=== PATIENT | male | born 1950 | race Caucasian/White ===

== ENCOUNTER 2019-04-25 16:17 | Outpatient (CLI) | payer OTHER, MEDICARE, SELFPAY ==
--- NOTE | 2019-04-25 16:30 | USCV_ITS ---
Yobany Simmons Age: 68 Gender: M : 1950 Exam Date: 04/25/2019 16:33 Ordering Phys: Mary Casillas MD ([email or web address]) Technologist: Marti Kendrick [place] [facility] [place]: HISTORY: PROCEDURES: FINDINGS: The Rt and Lt GSVs dwindle to nothing. The area of the GSV on RT pools into a Varicose Vein but can not trace origin. There is reflux in Rt GSV below knee but all the refluxing seems to come from the Rt SSV. The Lt GSV branches into several small vessels at mid thigh. No reflux noted. Sethi's cyst noted Lt Pop fossa. CONCLUSIONS 1.No evidence of DVT in the above-mentioned identifiable veins. 2. No significant reflux in the deep veins 3. On the right side, significant venous reflux of greater than 500 ms were noted at the below-knee greater saphenous vein segment, proximal and mid small saphenous vein segments. The distal greater saphenous vein segment is replaced by small tributaries, which empty into the mid greater saphenous vein. 4. On the left side, no significant reflux were noted in the superficial veins. The greater saphenous vein is identified only at the proximal segment. Multiple small tributaries appear to empty into the proximal greater saphenous vein segment. 5. The venous dimensions, depth from the surface and reflux times are as mentioned above. 6. The below-knee greater saphenous vein on the right side was 0.54 cm deep from the surface. The small saphenous vein segments on the right side were more than [address] Mary Casillas MD FAC (Electronically Signed) Final Date: 28 April 2019 14:10 S
== END 2019-04-25 16:18 | disposition home or self-care (01) ==
LOC: US 16:20
PROVIDERS: Family Provider Internal Medicine; PCP Internal Medicine; Visit Provider Internal Medicine Cardiovascular Disease
DX: M79.89 Other specified soft tissue disorders (principal); M71.22 Synovial cyst of popliteal space [Baker], left knee
CPT/HCPCS: 93970

== ENCOUNTER → 2019-09-24 16:15 | Outpatient (BNVA) | payer OTHER, MEDICARE, SELFPAY | PROVIDERS: Family Provider Internal Medicine; PCP Internal Medicine; Visit Provider Urology | DX: E29.1 Testicular hypofunction; K40.90 Unilateral inguinal hernia, without obstruction or gangrene, not specified as recurrent; N20.1 Calculus of ureter; N40.1 Benign prostatic hyperplasia with lower urinary tract symptoms; R79.89 Other specified abnormal findings of blood chemistry | CPT/HCPCS: 81001 ==

== ENCOUNTER 2019-10-14 03:04 | Emergency (ER) | payer OTHER, MEDICARE, SELFPAY ==
[2019-10-14 03:27] VITALS: BP 152/86; PULSE 58; RESP 16; TEMP 36.9; O2SAT 97; BMI 22.9
--- NOTE | 2019-10-14 03:29 | ED_ITS ---
HPI - Abdominal Pain General: Chief Complaint: Abdominal Pain Stated Complaint: lwr abd pain/ fell out shower Time Seen by Provider: 10/14/19 03:25 Source: patient Mode of arrival: ambulatory Limitations: no limitations History of Present Illness: HPI narrative: 69-year-old male states he started having sudden abdominal pain at 1130. States pain is in her right lower quadrant and goes to his groin along with his back. He states pain is sharp in nature. He states he has had difficulty urinating. He has no history kidney stone. He has had nausea with no vomiting. He denies any fever. Pertinent past history: none Onset (ago): hour(s) Pain Consistency: constant Location: RLQ and LLQ Severity: severe Quality: sharp Radiation: R flank Exacerbating factors: nothing Relieving factors: nothing Associated Symptoms: Reports nausea; Denies chills, dysuria and fever(s) Review of Systems Const: Denies: fever(s), chills, body aches or change in appetite Eyes: Denies: blurry vision or eye discomfort ENMT: Denies: throat pain or dental pain Card: Denies: chest pain Resp: Denies: dyspnea GI: Reports: abdominal pain and nausea : Denies: dysuria Musc: Denies: neck pain or back pain Skin/Breast: Denies: rash Neuro: Denies: headache(s) Psych: Denies: depression Lopez/Lymph: Denies: easy bruising All/Imm: Denies: urticaria PFSH ED PFSH: Medical History BPH loc w urin obs/LUTS Erectile dysfunction H/O coronary angiogram Hyperlipidemia Hypertension Hypogonadism in male Mitral regurgitation Ventricular arrhythmia Surgical History History of carpal tunnel surgery of right wrist Family History Other CAD (coronary artery disease) Cancer Dementia Diabetes Social History Smoking and tobacco status: former smoker Alcohol intake: never Adopted: No Caregiver/support person: No Lives independently: No Household members: spouse Marital status: Current occupational status: employed Physical Exam Const: COMMON NORMALS: no acute distress, patient oriented x3 and healthy appearing HENMT: COMMON NORMALS: normocephalic and atraumatic HEAD & SCALP: normocephalic and atraumatic Eye: COMMON NORMALS: Equal, round and reactive pupils present and EOMs intact bilaterally PUPIL: Yes Equal, round and reactive pupils present Neck/C-Spine: COMMON NORMALS: full ROM and supple Chest: COMMONS NORMALS: normal inspection of the chest and normal palpation of entire chest wall Resp: COMMON NORMALS: normal respiratory effort, No retractions, No use of accessory muscles and clear to auscultation bilaterally AUSCULTATION: clear to auscultation bilaterally Cardio: COMMON NORMALS: regular rate, regular rhythm and No murmurs present (Cardio) RATE: regular rate RHYTHM: regular rhythm GI: COMMON NORMALS: Normal to inspection, nondistended, normoactive bowel sounds present, Soft to palpation, non-tender and no masses PALPATION: Yes Soft to palpation Extremity: COMMON NORMALS: normal to inspection and full ROM Neuro: COMMON NORMALS: patient oriented x3, moves all extremities and no focal motor deficits Psych: COMMON NORMALS: mental status grossly normal, Normal thought process present and cooperative THOUGHT PROCESS: Normal thought process present Skin: COMMON NORMALS: no rashes or lesions noted and no wounds GENERAL SKIN EXAM: no rashes or lesions noted Course Vital Signs: Vital signs: Vital Signs Temperature 98.5 F 10/14/19 03:27 Pulse Rate 55 L 10/14/19 04:05 Respiratory Rate 15 10/14/19 04:05 Blood Pressure 137/78 10/14/19 04:05 Pulse Oximetry 94 10/14/19 04:05 MDM - Abdominal Pain MDM Narrative: Medical decision making narrative: Yobany presents here with a kidney stone. Kidney stone is small and his pain is much improved. We will place him on pain meds. He is to follow-up with Dr. Melara and return if worsening. Lab Data: Labs: Lab Results 10/14/19 10/14/19 10/14/19 Range/Units 03:39 03:39 04:45 WBC 9.7 (4.0-10.0) 10^3/ uL RBC 4.91 (4.1-5.3) 10^6/u L Hgb 15.1 (11.7-16.6) g/dL Hct 45.2 (42.0-52.0) % MCV 92.1 (80-94) fL MCH 30.8 (28.0-34.0) pg MCHC 33.4 (30.0-36.0) g/dL RDW 12.4 (12.1-15.1) % Plt Count 201 (130-400) 10^3/c mm MPV 9.6 (7.4-10.4) fL Neut % (Auto) 78.2 % Lymph % (Auto) 16.1 % [place] % (Auto) 4.1 % Eos % (Auto) 1.3 % Baso % (Auto) 0.1 % Neut # (Auto) 7.58 (1.8-7.7) 10^3/u L Lymph # (Auto) 1.6 (0.8-4.8) 10^3/u L [place] # (Auto) 0.4 (0.2-0.9) 10^3/u L Eos # (Auto) 0.1 (0.0-0.8) 10^3/u L Baso # (Auto) 0.0 (0.0-0.1) 10^3/u L Nucleated RBC % (a uto) 0 % Nucleated RBCs # 0.0 /100WBC Sodium 140 (136-145) mmol/L Potassium 4.0 (3.5-5.1) mmol/L Chloride 105 (98-107) mmol/L Carbon Dioxide 26 (22-29) mmol/L Anion Gap 13.0 (5-19) BUN 21 (8-23) mg/dL Creatinine 1.2 (0.7-1.2) mg/dL GFR Calculation 60.4 L (90-130) mL/min Glucose 168 H (65-115) mg/dL Calculated Osmolal ity 290 (285-295) mOsm/k g Calcium 8.9 (8.5-10.5) mg/dL Total Bilirubin 0.8 (0.15-1.2) mg/dL AST 24 (0-40) U/L ALT 23 (0-41) U/L Alkaline Phosphata se 60 (40-130) IU/L Total Protein 6.5 L (6.6-8.7) g/dL Albumin 4.3 (3.5-5.2) g/dL Globulin 2.2 (1.3-4.6) g/dL Lipase 48 (13-60) U/L Urine Color Yellow (Yellow) Urine Appearance Cloudy (CLEAR) Urine pH 5 (5-7) Ur Specific Gravit y 1.030 (1.005-1.030) Urine Protein Neg (Negative) Urine Glucose (UA) Norm (Normal) Urine Ketones 1+ H (Negative) Urine Blood Trace H (Negative) Urine Nitrate Negative (Negative) Urine Bilirubin Neg (NEGATIVE) Urine Urobilinogen Norm (Negative) mg/dL Ur Leukocyte Brandy ase Negative (Negative) Urine RBC Rare (0-2) /hpf Urine WBC Rare (0-5) /hpf Ur Squamous Epith Cells Rare (0-5) Amorphous Sediment Not Reportable Urine Bacteria 1+ H (NONE) Imaging Data ^: CT Abd/Pel: Radiologist's impression: [place] [address] CT Scan Report Signed Patient: Yobany Simmons Unit #: [id number] : 1950 Age/Sex: 69 / M ADM Date: 10/14/19 Loc: ER Room/Bed: Attending Dr: Ordering Provider/Ordering MD: Korey Pittman MD Date of Service: 10/14/19 Procedure(s): CT kidney stone 55244 Accession Number(s): [id number] Report Number: [id number] PROCEDURE INFORMATION: Exam: CT Abdomen And Pelvis Without Contrast Exam date and time: 10/14/2019 3:45 AM Age: 69 years old Clinical indication: Abdominal pain; Flank; Right; Additional info: Abd pain TECHNIQUE: Imaging protocol: Computed tomography of the abdomen and pelvis without contrast. Radiation optimization: All CT scans at this facility use at least one of these dose optimization techniques: automated exposure control; mA and/or kV adjustment per patient size (includes targeted exams where dose is matched to clinical indication); or iterative reconstruction. COMPARISON: CT abdomen pelvis w con* [id number] 07/23/2018 3:28 PM RADIATION DOSE METRICS: Total DLP (mGy-cm): 895.74 FINDINGS: Liver: Normal. No mass. Gallbladder and bile ducts: Normal. No calcified stones. No ductal dilation. Pancreas: Normal. No ductal dilation. Spleen: Tiny calcifications are present. No splenomegaly. Adrenals: Normal. No mass. Kidneys and ureters: A punctate stone is seen in the right lower ureter with mild hydroureteronephrosis and perinephric stranding. Stomach and bowel: Unremarkable. No obstruction. Diverticulosis of the left colon is present without diverticulitis. Appendix: No evidence of appendicitis. Unremarkable appendix. Intraperitoneal space: Unremarkable. No free air. No significant fluid collection. Vasculature: Unremarkable. No abdominal aortic aneurysm. Lymph nodes: Unremarkable. No enlarged lymph nodes. Bladder: Unremarkable as visualized. Reproductive: The prostate is prominent with calcifications. Bones/joints: Multilevel degenerative changes are present. No acute fracture. Soft tissues: Unremarkable. CT/CT kidney stone [id number] IMPRESSION: 1. A punctate stone is seen in the right lower ureter with mild hydroureteronephrosis and perinephric stranding. 2. Diverticulosis of the left colon is present without diverticulitis. 3. Multilevel degenerative changes seen in the lumbar spine. 4. Mildly enlarged prostate is seen with calcifications. Discharge Plan Discharge Patient Disposition: Home Clinical Impression: Kidney stone Condition: Stable Prescriptions: [place] 5-325 mg tablet 1 tab PO Q6H PRN (Reason: pain) Qty: 14 RF: 0 ondansetron 4 mg tablet,disintegrating 4 mg PO Q6H PRN (Reason: nausea and vomiting) Qty: 14 RF: 0 Flomax 0.4 mg capsule 0.4 mg PO DAILY Qty: 5 RF: 0 No Action tamsulosin 0.4 mg capsule 0.4 mg PO QDAY Qty: 30 RF: 12 bupropion HCl [Wellbutrin XL] 150 mg tablet extended release 24 hr 150 mg PO QAM RF: 0 metoprolol succinate [Toprol XL] 50 mg tablet extended release 24 hr 50 mg PO DAILY RF: 0 testosterone 12.5 mg/ 1.25 gram (1 %) gel in metered-dose pump 4 pump TRANSDERMA DAILY RF: 0 sildenafil 25 mg tablet 25 mg PO DAILY PRNRF: 0 hydrocortisone 2.5 % cream with applicator topical PRNRF: 0 montelukast [Singulair] 10 mg tablet 10 mg PO DAILY RF: 0 omega-3 fatty acids [Fish Oil Concentrate] 1,000 mg capsule 1,000 mg PO DAILY RF: 0 multivitamin Tablet 1 tab PO DAILY RF: 0 Discharge Orders: Discharge Order (Routine); Ordered 10/14/19 Ordered By: Korey Pittman Referrals: John Melara MD [Physician] - 1-3 days Clemente Muñiz DO [Primary Care Provider] - Discharge Diet: Advance as tolerated Discharge Activity: Resume usual activity Patient Instructions: Kidney Stones (ED) Coding Level of Care Code ED Roller [place] for Chg Fwd Exam Comprehensive
[2019-10-14 03:49] LABS: Basophils % 0.1 %; Eosinophils # 0.1 10^3/uL (0.0-0.8); Eosinophils % 1.3 %; Hematocrit 45.2 % (42.0-52.0); Hemoglobin 15.1 g/dL (11.7-16.6); Lymphocytes # 1.6 10^3/uL (0.8-4.8); Lymphocytes % 16.1 %; Mean Corpuscular HGB Conc 33.4 g/dL (30.0-36.0); Mean Corpuscular Hemoglobin 30.8 pg (28.0-34.0); Mean Corpuscular Volume 92.1 fL (80-94); Mean Platelet Volume 9.6 fL (7.4-10.4); Monocytes # 0.4 10^3/uL (0.2-0.9); Monocytes % 4.1 %; Neutrophils # 7.58 10^3/uL (1.8-7.7); Neutrophils % 78.2 %; Nucleated Red Blood Cells % 0 %; Platelet Count 201 10^3/cmm (130-400); Red Blood Count 4.91 10^6/uL (4.1-5.3); Red Cell Distribution Width 12.4 % (12.1-15.1); White Blood Count 9.7 10^3/uL (4.0-10.0)
[2019-10-14] MEDS: HYDROmorphone 1 mg/mL INJ 1 mL IVP (03:53)
[2019-10-14] MEDS: sodium chloride 0.9% 1,000 ML 999 ML IV (03:54)
[2019-10-14] MEDS: ondansetron 2 mg/ML SDV 2 mL 4 MG IVP (03:54)
[2019-10-14 04:05] VITALS: BP 137/78; PULSE 55; RESP 15; O2SAT 94
[2019-10-14 04:07] LABS: Alanine Aminotransferase 23 U/L (0-41); Albumin Level 4.3 g/dL (3.5-5.2); Alkaline Phosphatase 60 IU/L (40-130); Aspartate Amino Transferase 24 U/L (0-40); Blood Urea Nitrogen 21 mg/dL (8-23); Calcium 8.9 mg/dL (8.5-10.5); Carbon Dioxide 26 mmol/L (22-29); Chloride 105 mmol/L (98-107); Globulin 2.2 g/dL (1.3-4.6); Glomerular Filtration Rate 60.4 mL/min (90-130); Glucose 168 mg/dL (65-115); Lipase 48 U/L (13-60); Osmolality Calculated 290 mOsm/kg (285-295); Sodium 140 mmol/L (136-145); Total Bilirubin 0.8 mg/dL (0.15-1.2); Total Protein 6.5 g/dL (6.6-8.7)
[2019-10-14] MEDS: ketorolac 30 mg/mL INJ 15 MG IVP (04:49)
[2019-10-14 05:27] LABS: Add Urine Microscopic? YES; Bilirubin Urine Neg (NEGATIVE); Blood Urine Trace (Negative); Glucose Urine UA Norm (Normal); Ketones Urine 1+ (Negative); Leukocyte Esterase Urine Negative (Negative); Nitrate Urine Negative (Negative); Protein Urine Neg (Negative); RBC Urine RARE /hpf (0-2); Urine Appearance Cloudy (CLEAR); Urine Color Yellow (Yellow); Urobilinogen Urine Norm (Negative); WBC Urine RARE /hpf (0-5); pH Urine 5 (5-7)
[2019-10-14 05:28] LABS: Bacteria Urine 1+; Squamous Epithelial Cell Urine RARE (0-5)
[2019-10-14 05:44] VITALS: BP 120/75; PULSE 78; RESP 16; O2SAT 96
--- NOTE | 2019-10-14 09:44 | DCPLANNER ---
volunteer manager had message to schedule a follow up appointment for patient with Dr. Melara. volunteer manager called the office of Dr. Melara, spoke with Kiki, gave clinic patients information. volunteer manager was told that patients information would be printed and reviewed. Clinic will call patient with appointment information.
--- NOTE | 2019-10-17 15:50 | DCPLANNER ---
Patient has a follow up appointment scheduled for Monday, October 21, 2019 at 4:[address] Melara. Clinic will call patient with appointment information.
--- NOTE | 2019-11-13 08:23 | DCPLANNER ---
Patient had a follow up appointment scheduled with Dr. Dong office - patient did attend the appointment.
== END 2019-10-14 05:45 | disposition home or self-care (01) ==
PROVIDERS: Emergency Provider Emergency Medicine; PCP Internal Medicine
DX: N20.0 Calculus of kidney (principal); E78.5 Hyperlipidemia, unspecified; I10 Essential (primary) hypertension; Z87.891 Personal history of nicotine dependence
CPT/HCPCS: 12345; 74176; 80053; 81001; 83690; 85025; 96361; 96374; 96375; 99283; J1170; J1885; J2405; J7030

== ENCOUNTER 2019-10-14 13:24 | Outpatient (CLI) | payer OTHER, MEDICARE, SELFPAY ==
--- NOTE | 2019-10-14 13:00 | XRR_ITS ---
PROCEDURE INFORMATION: Exam: XR Abdomen, 1 View Exam date and time: 10/14/2019 1:40 PM Age: 69 years old Clinical indication: Condition or disease; Kidney or ureter condition; Calculus (stone) in kidney TECHNIQUE: Imaging protocol: XR of the abdomen. Views: Frontal supine view of the abdomen. 1 View. COMPARISON: CT kidney stone [id number] 10/14/2019 4:11 AM FINDINGS: Gastrointestinal tract: Normal. No bowel dilation. Bones/joints: No acute findings. XR/XR KUB [id number] IMPRESSION: No acute findings.
== END 2019-10-14 13:25 | disposition home or self-care (01) ==
LOC: RAD 13:28
PROVIDERS: PCP Internal Medicine; Visit Provider Urology
DX: N20.0 Calculus of kidney (principal)
CPT/HCPCS: 74018

== ENCOUNTER → 2019-10-15 10:44 | Outpatient (BNVA) | payer OTHER, MEDICARE, SELFPAY | PROVIDERS: PCP Internal Medicine; Visit Provider Urology | DX: N20.1 Calculus of ureter (principal) | CPT/HCPCS: 82365 ==

== ENCOUNTER → 2019-11-12 13:28 | Outpatient (BNVA) | payer OTHER, MEDICARE, SELFPAY | PROVIDERS: PCP Internal Medicine; Visit Provider Internal Medicine | DX: Z20.828 Contact with and (suspected) exposure to other viral communicable diseases (principal) | CPT/HCPCS: 87635 ==

== ENCOUNTER → 2020-07-07 15:24 | Outpatient (BNVA) | payer OTHER, MEDICARE, SELFPAY | PROVIDERS: PCP Internal Medicine; Visit Provider Internal Medicine | DX: Z01.812 Encounter for preprocedural laboratory examination (principal); Z86.010 Personal history of colon polyps; Z20.822 Contact with and (suspected) exposure to COVID-19 | CPT/HCPCS: 87635 ==

== ENCOUNTER 2020-07-13 08:47 | Day surgery (SDC) | payer OTHER, MEDICARE, SELFPAY ==
[2020-07-13 09:18] VITALS: BP 141/88; PULSE 63; RESP 16; TEMP 36.7; O2SAT 97
[2020-07-13] MEDS: sodium chloride 0.9% 1,000 ML 30 ML IV (09:32)
--- NOTE | 2020-07-13 09:49 | ANES.PREANE2 ---
Pre-Anesthetic Assessment Pre-Anesthetic Assessment: Height/Weight: Height 1.78 m Weight 72.575 kg Temp Pulse Resp BP Pulse Ox 98.1 F 63 16 141/88 97 07/13/20 09:18 07/13/20 09:18 07/13/20 09:18 07/13/20 09:18 07/13/20 09:18 Proposed Procedure: Operation Date: 07/13/20 10:00 Proposed Procedures p Colonoscopy G0105 Z86.010(Not Applicable) - Wiliam Joshi MD Was Beta Tia taken within 24 hours: Yes Last intake: Intake Last Liquid Date 07/12/20 Last Liquid Time 23:30 Last Solid Date 07/11/20 Last Solid Time 19:00 Social: Social History: No alcohol and No tobacco Exam: Pre-Anes Outpt Exam: alert, oriented x 3, clear to auscultation bilaterally and regular rate & rhythm Airway: Submandibular: WNL Cervical ROM: WNL MP: 2 Dentition: False Additional comments: Upper denture History/ROS: No significant history except as noted and No significant complaints Pulmonary: Pulmonary: None reported CV/HEM: CV/HEM: Afib, HTN and Murmur : : None reported Hepatic: Hepatic: None reported GI: GI: None reported Metabolic: Metabolic: None reported Musc/skel: Musc/skel: None reported Neuropsych: Neuropsych: None reported Anesthetic Plan: ASA status: 2 Anesthesia: MAC Risk of > 500 ml blood loss (7ml/kg in children): No Meds/Allergies Current Medications: Current Medications Generic Name Dose Route Start Last Admin Trade Name Freq PRN Reason Stop Dose Admin Sodium Chloride 1,000 mls @ 30 ml s/hr 07/13/20 09:15 07/13/20 09:32 Sodium Chloride 0.9% IV 07/14/20 09:14 30 mls/hr .Q24H HARRIET Administration PFSH Anesthesia PFSH: Medical History (Updated 06/29/20 @ 15:15 by Wiliam Joshi MD) BPH loc w urin obs/LUTS Erectile dysfunction H/O coronary angiogram Hyperlipidemia Hypertension Hypogonadism in male Mitral regurgitation Right ureteral calculus Ventricular arrhythmia Surgical History History of carpal tunnel surgery of right wrist Family History Family/Other Anesthesia complication Cancer Dementia Diabetes Father CAD (coronary artery disease) Dementia Stroke Mother CAD (coronary artery disease) Cancer Diabetes Sister Cancer Lung disease Denies family history of Clotting disorder Chronic kidney disease (CKD) Suicide Bleeding disorder Social History Smoking and tobacco status: former smoker Alcohol intake: never Adopted: No Caregiver/support person: No Lives independently: No Household members: spouse Marital status: Current occupational status: employed Data Anesthesia Cardiac Studies: No Data to Display
[2020-07-13 10:31] VITALS: BP 95/72; PULSE 81; RESP 18; TEMP 36.6; O2SAT 96
[2020-07-13 11:03] VITALS: BP 108/73; PULSE 61; RESP 18; O2SAT 98
--- NOTE | 2020-07-13 13:18 | W.PM.OPSFHP ---
Same Day Surgery H&P Indication for Procedure/HPI DATE OF PROCEDURE: July 13, 2020 CHIEF COMPLAINT/INDICATIONFOR SURGICAL PROCEDURE: Personal history of colon polyps PREOP DIAGNOSIS: sc PLANNED PROCEDRUE: Operation Date: 07/13/20 10:00 Proposed Procedures p Colonoscopy G0105 Z86.010(Not Applicable) - Wiliam Joshi MD Medications/Allergies* Home Medications Medication Instructions Recorded Confirmed Type montelukast 10 mg tablet 10 mg PO DAILY 04/15/19 07/13/20 History multivitamin 1 tab PO DAILY 04/15/19 07/09/20 History ibuprofen 200 mg tablet 200 mg PO Q6H PRN 10/14/19 07/13/20 History Vitamin D3 25 mcg PO DAILY 07/13/20 07/13/20 History tadalafil 5 mg PO DAILY PRN 07/13/20 07/13/20 History testosterone 1 pump TOPICAL DAILY PRN 07/13/20 07/13/20 History triamcinolone acetonide 1 applic TOPICAL DAILY PRN 07/13/20 07/13/20 History zinc 100 mg PO DAILY 07/13/20 07/13/20 History Allergies/Adverse Reactions Allergy/AdvReac Type Severity Reaction Status Date / Time No Known Allergies Allergy Verified 06/29/20 14:49 Pertinent History/Comorbid Conditions* Medical History (Updated 06/29/20 @ 15:15 by Wiliam Joshi MD) BPH loc w urin obs/LUTS Erectile dysfunction H/O coronary angiogram Hyperlipidemia Hypertension Hypogonadism in male Mitral regurgitation Right ureteral calculus Ventricular arrhythmia Surgical History (Updated 04/15/19 @ 16:02 by Mary Casillas MD) History of carpal tunnel surgery of right wrist Family History (Updated 06/03/20 @ 15:35 by Alida Begum RN) Diabetes Family/Other Mother CAD (coronary artery disease) Father Mother Dementia Family/Other Father Anesthesia complication Family/Other Lung disease Sister Cancer Family/Other Mother Sister Stroke Father Denies family history of Clotting disorder Chronic kidney disease (CKD) Suicide Bleeding disorder Social History Smoking and tobacco status: former smoker Alcohol intake: never Adopted: No Caregiver/support person: No Lives independently: No Household members: spouse Marital status: Current occupational status: employed Pertinent Exam Findings alert, oriented x 3, clear to auscultation bilaterally, regular rate & rhythm, operative site marked and procedure specific exam findings Recommendations Surgery/Procedure today Coding Level of Care Code Acute Javascript Software Engineer for Buffy Meyers
--- NOTE | 2020-07-13 17:07 | ANE.PACU2 ---
Inpatient post-anesthesia follow up: Airway intact: Yes Vital signs: Temperature 97.9 F Pulse Rate 61 Respiratory Rate 18 Blood Pressure 108/73 Pulse Oximetry 98 Oxygen Delivery Me thod Room Air Oxygen Flow Rate Fraction of Inspir ed Oxygen Hydration adequate: Yes Nausea and vomiting: No Pain level: 1 Mental status: Baseline
== END 2020-07-13 11:06 | disposition home or self-care (01) ==
PROVIDERS: PCP Internal Medicine; Visit Provider Internal Medicine
PROC: 0DJD8ZZ Inspection of Lower Intestinal Tract, Via Natural or Artificial Opening Endoscopic (ICD-10-PCS; CPT 45378; principal; 2020-07-13 10:00)
DX: D12.2 Benign neoplasm of ascending colon (principal); Z86.010 Personal history of colon polyps; N40.1 Benign prostatic hyperplasia with lower urinary tract symptoms; N13.8 Other obstructive and reflux uropathy; E78.5 Hyperlipidemia, unspecified; I10 Essential (primary) hypertension; Z87.891 Personal history of nicotine dependence; I48.91 Unspecified atrial fibrillation
CPT/HCPCS: 45385; 88305; 96360; J2704; J7030

== ENCOUNTER → 2020-08-04 15:41 | Outpatient (BNVA) | payer OTHER, MEDICARE, SELFPAY | PROVIDERS: PCP Internal Medicine; Visit Provider Internal Medicine Cardiovascular Disease | DX: E78.2 Mixed hyperlipidemia (principal) | CPT/HCPCS: 80061 ==

== ENCOUNTER 2020-09-22 15:07 | Outpatient (CLI) | payer OTHER, MEDICARE, SELFPAY ==
--- NOTE | 2020-09-22 15:18 | XR_ITS ---
WS: [id number] ABDOMEN KUB CLINICAL INFORMATION: Renal/ureteral calculi. COMPARISON: CT and KUB October 14, 2019 FINDINGS: No visualized renal parenchymal or ureteral calculi. Pelvic phleboliths appear stable. Normal bowel gas pattern. Scattered air and normal caliber small and large bowel. No significant annette l distention. XR/XR KUB [id number] Impression: No visualized renal parenchymal or ureteral calculi.
== END 2020-09-22 15:08 | disposition home or self-care (01) ==
PROVIDERS: PCP Internal Medicine; Visit Provider Urology
DX: N20.1 Calculus of ureter (principal); N20.0 Calculus of kidney
CPT/HCPCS: 74018; 81003; 84403; G0103

== ENCOUNTER → 2021-03-28 15:31 | Outpatient (BNVA) | payer OTHER, MEDICARE, SELFPAY | PROVIDERS: PCP Internal Medicine; Visit Provider Urology | DX: N52.9 Male erectile dysfunction, unspecified (principal); N40.1 Benign prostatic hyperplasia with lower urinary tract symptoms; E29.1 Testicular hypofunction | CPT/HCPCS: 81003; 84403 ==

== ENCOUNTER 2022-03-27 16:51 | Outpatient (CLI) | payer MEDICARE, SELFPAY ==
[2022-03-27 17:53] LABS: PSA Screen - Urology 1.18 ng/mL (0-4); Testosterone Total 296.4 ng/dL (193-740)
== END 2022-03-27 16:52 | disposition home or self-care (01) ==
LOC: LAB 16:54
PROVIDERS: PCP Internal Medicine; Visit Provider Urology
DX: Z01.89 Encounter for other specified special examinations (principal)
CPT/HCPCS: 36415; 84403; G0103

== ENCOUNTER → 2022-03-28 15:37 | Outpatient (BNVA) | payer MEDICARE, SELFPAY | PROVIDERS: PCP Internal Medicine; Visit Provider Urology | DX: Z12.5 Encounter for screening for malignant neoplasm of prostate; R79.89 Other specified abnormal findings of blood chemistry; N52.9 Male erectile dysfunction, unspecified; E29.1 Testicular hypofunction; Z87.440 Personal history of urinary (tract) infections | CPT/HCPCS: 81003; 99213 ==

== ENCOUNTER 2022-05-17 09:28 | Outpatient (CLI) | payer OTHER, SELFPAY ==
--- NOTE | 2022-05-17 09:43 | USCV_ITS ---
Yobany Simmons Age: 71 Gender: M : 1950 Exam Date: 05/17/2022 10:20 Ordering Phys: Mary Casillas MD ([email or web address]) Technologist: YAZ Exam Location: [facility] [place] Indication: HISTORY: PROCEDURES: FINDINGS: NO DVT SEEN AT THIS TIME NO REFLUX SEEN AT THIS TIME MEDIAL KNEE FLUID COLLECTION NOTED. ?SYNOVIAL FLUID CONCLUSIONS 1. No significant venous reflux on the left side. 2. Relatively small caliber and superficial greater saphenous vein segments on the left side. 3. Echo-free space at the medial aspect of the left knee suggesting? Joint effusion/free fluid collection. Dr Mary Casillas MD [facility] (Electronically Signed) Final Date: 17 May 2022 18:54 S
== END 2022-05-17 09:29 | disposition home or self-care (01) ==
PROVIDERS: PCP Internal Medicine; Visit Provider Internal Medicine Cardiovascular Disease
DX: M79.605 Pain in left leg (principal)
CPT/HCPCS: 93971

== ENCOUNTER 2022-05-17 09:29 | Outpatient (CLI) | payer MEDICARE, SELFPAY ==
--- NOTE | 2022-05-17 09:46 | USCV_ITS ---
Troy Yobany Age: 71 Gender: M : 1950 Exam Date: 05/17/2022 11:09 Ordering Phys: Mary Casillas MD ([email or web address]) Technologist: Chase Topete [place] [facility] [place]ication: heart murmur BP: 130 / 73 HR: 62 Rhythm: Sinus Technical Quality: Adequate MEASUREMENTS (Male / Female) Normal Values 2D ECHO LV Diastolic Diameter PLAX 5.4 cm 4.2 - 5.9 / 3.9 - 5.3 cm LV Systolic Diameter PLAX 3.5 cm IVS Diastolic Thickness 1.0 cm 0.6 - 1.0 / 0.6 - 0.9 cm IVS Systolic Thickness 0.9 cm LVPW Diastolic Thickness 1.3 cm 0.6 - 1.0 / 0.6 - 0.9 cm LVPW Systolic Thickness 1.7 cm LVOT Diameter 2.0 cm LV Ejection Fraction 2D Teich 65.1 % LV Ejection Fraction MOD 2C 68.5 % LV Ejection Fraction 2C AL 70.2 % LA Diameter 3.3 cm LA Width 3.5 cm LA Height 3.9 cm RA Width 2.9 cm RA Height 4.4 cm Aorta at Sinotubular Diameter 2.1 cm IVC Diameter 1.6 cm M-MODE Aortic Annulus Diameter 3.3 cm LA Ao Ratio MM 1.0 DOPPLER AV Peak Velocity 163.7 cm/s LVOT Peak Velocity 139.0 cm/s AV Area Cont Eq vti 3.2 cm squared AV Area Cont Eq pk 2.7 cm squared MV Peak Velocity 97.0 cm/s MV Area PHT 3.7 cm squared Mitral E to A Ratio 0.6 MV E' Velocity 32.5 cm/s Mitral E to MV E' Ratio 8.7 Mitral E to LV E' Lateral Ratio 7.0 Mitral E to LV E' Septal Ratio 11.7 TR Peak Velocity 295.3 cm/s TR Peak Gradient 34.9 mmHg TR Mean Velocity 246.7 cm/s TR Mean Gradient 28.4 mmHg TR Velocity Time Integral 71.7 cm Right Atrial Pressure 3.0 mmHg Pulmonary Artery Systolic Pressu 37.9 mmHg PV Peak Velocity 119.7 cm/s RV Acceleration Time 0.1 s RV Ejection Time 0.3 s RV AcT/ET 0.2 FINDINGS Left Ventricle Normal left ventricular size and systolic function, EF 65 %. No regional wall motion abnormalities. Grade I/IV diastolic dysfunction (abnormal relaxation filling pattern), normal to mildly elevated filling pressures. Right Ventricle The right ventricle is normal in size and function. Right Atrium The right atrium is normal in size. Left Atrium The left atrium is normal in size. Mitral Valve Mild mitral valve regurgitation. Aortic Valve No gross abnormalities noted Tricuspid Valve Trace tricuspid valve regurgitation. Pulmonic Valve No gross abnormalities noted Pericardium Normal pericardium without effusion. Aorta Normal size aortic root and proximal ascending aorta. IVC Normal inferior vena cava. CONCLUSIONS Normal left ventricular size and systolic function, EF 65 %. No regional wall motion abnormalities. Grade I/IV diastolic dysfunction (abnormal relaxation filling pattern), normal to mildly elevated filling . Mild mitral valve regurgitation. Trace tricuspid valve regurgitation. There is no pericardial effusion. There are no intracardiac masses. Compared to the study from 04/01/2018, there may not be a significant change Dr Mary Casillas MD FACC (Electronically Signed) Final Date: 18 May 2022 10:00 S
== END 2022-05-17 09:30 | disposition home or self-care (01) ==
PROVIDERS: PCP Internal Medicine; Visit Provider Internal Medicine Cardiovascular Disease
DX: R01.1 Cardiac murmur, unspecified (principal); I08.1 Rheumatic disorders of both mitral and tricuspid valves
CPT/HCPCS: 93306

== ENCOUNTER 2023-01-29 16:25 | Outpatient (CLI) | payer MEDICARE, SELFPAY ==
--- NOTE | 2023-01-29 16:40 | CT_ITS ---
WS: [id number] LDCT LUNG CANCER SCREENING HISTORY: HISTORY OF TOBACCO USE TECHNIQUE: Axial imaging performed from the apices to 1 cm below the costophrenic angles. Coronal and sagittal reformats are submitted with axial MIP series. All CT scans at [facility] use at least one of these dose optimization techniques: automated exposure control; mA and/or kV adjustment per patient size (includes targeted exams where dose is matched to clinical indication); or iterativ e reconstruction. DLP: 57.31 mGy.cm DIvol: Mean CTDIvol: 1.20 (mGy) COMPARISON: None available. Diagnostic quality: Satisfactory Lungs: No suspicious nodule or mass. There is mild interstitial thickening in the periphery of the LE FT lung consistent with scarring and fibrosis. No mass. No endobronchial lesions. Heart: Normal size heart with no pericardial effusion.. Other findings: Very minimal atherosclerotic plaque within the thoracic aorta. Normal sized pulmonary artery. Small mediastinal and hilar lymph nodes. Splenic granulomata. No adrenal mass. No destructiv e osseous process. IMPRESSION: CT/CT lung screening [id number] LUNG-RADS: 1-Negative FOLLOW UP: 12 Month: Continue annual screening with LDCT OTHER FINDINGS (S MODIFIER): None.
== END 2023-01-29 16:26 | disposition home or self-care (01) ==
LOC: RAD 16:26
PROVIDERS: PCP Internal Medicine; Visit Provider Internal Medicine
DX: Z12.2 Encounter for screening for malignant neoplasm of respiratory organs (principal); Z87.891 Personal history of nicotine dependence
CPT/HCPCS: 71271

== ENCOUNTER → 2023-08-15 14:48 | Outpatient (BNVA) | payer MEDICARE, SELFPAY | PROVIDERS: PCP Internal Medicine; Visit Provider Nurse Practitioner Family | DX: B07.8 Other viral warts (principal); L72.0 Epidermal cyst; Q82.5 Congenital non-neoplastic nevus; L82.1 Other seborrheic keratosis | CPT/HCPCS: 17110; 99213 ==

== ENCOUNTER → 2023-09-05 14:17 | Outpatient (BNVA) | payer MEDICARE, SELFPAY | PROVIDERS: PCP Internal Medicine; Visit Provider Dermatology | DX: D48.5 Neoplasm of uncertain behavior of skin (principal); L72.0 Epidermal cyst; B07.8 Other viral warts | CPT/HCPCS: 10061; 11402; 12032; 17110 ==

== ENCOUNTER → 2023-09-12 15:40 | Outpatient (BNVA) | payer MEDICARE, SELFPAY | PROVIDERS: PCP Internal Medicine; Visit Provider Dermatology | DX: D48.5 Neoplasm of uncertain behavior of skin (principal) | CPT/HCPCS: 87070 ==

== ENCOUNTER → 2023-09-17 15:33 | Outpatient (BNVA) | payer MEDICARE, SELFPAY | PROVIDERS: PCP Internal Medicine; Visit Provider Nurse Practitioner Family | DX: D48.5 Neoplasm of uncertain behavior of skin (principal) | CPT/HCPCS: 99214 ==

== ENCOUNTER → 2023-09-20 15:46 | Outpatient (BNVA) | payer MEDICARE, SELFPAY | PROVIDERS: PCP Internal Medicine; Visit Provider Nurse Practitioner Family | DX: D48.5 Neoplasm of uncertain behavior of skin (principal); B07.8 Other viral warts | CPT/HCPCS: 17110; 99213 ==

== ENCOUNTER → 2023-09-25 15:54 | Outpatient (BNVA) | payer MEDICARE, SELFPAY | PROVIDERS: PCP Internal Medicine; Visit Provider Dermatology | DX: L72.0 Epidermal cyst (principal); B07.8 Other viral warts | CPT/HCPCS: 99213 ==

== ENCOUNTER → 2023-10-09 16:21 | Outpatient (BNVA) | payer MEDICARE, SELFPAY | PROVIDERS: PCP Internal Medicine; Visit Provider Internal Medicine Cardiovascular Disease | DX: I45.89 Other specified conduction disorders (principal) | CPT/HCPCS: 93005; 99214 ==

== ENCOUNTER → 2023-10-10 14:24 | Outpatient (BNVA) | payer MEDICARE, SELFPAY | PROVIDERS: PCP Internal Medicine; Visit Provider Dermatology | DX: D48.5 Neoplasm of uncertain behavior of skin (principal) | CPT/HCPCS: 11404; 12034 ==

== ENCOUNTER → 2023-10-24 15:45 | Outpatient (BNVA) | payer MEDICARE, SELFPAY | PROVIDERS: PCP Internal Medicine; Visit Provider Dermatology | DX: L82.1 Other seborrheic keratosis (principal); R22.2 Localized swelling, mass and lump, trunk; L72.0 Epidermal cyst; L57.8 Other skin changes due to chronic exposure to nonionizing radiation; Z48.02 Encounter for removal of sutures | CPT/HCPCS: 99213 ==

== ENCOUNTER 2023-12-12 08:48 | Outpatient (CLI) | payer MEDICARE, SELFPAY ==
--- NOTE | 2023-12-12 | ECG_ITS ---
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 Interpretive Statements Lung unchanged pre/post procedure; Intra procedure shortness of breath; Symptoms resoled by discharge PROCEDURE: The baseline electrocardiogram showed [normal sinus rhythm with nonspecific IVCD. Poor R wave progression. Diffuse nonspecific ST-T changes. At the baseline, the patient's blood pressure was 153/79 mm Hg with a heart rate of 77. The patient exercised for 6-minute on a standard Mandeep protocol. Patient attained a maximum heart rate of 166 beats per minute( 111 % of the maximum predicted heart rate) with a blood pressure at the peak exercise of 123/98 mm Hg. The EKG at the peak exercise revealed 1.[address] depressions in leads II, III and aVF. [address] depression in leads V5 and V6. Patient did not have any chest pain or any significant arrhythmis with the exercise Sestamibi was injected 1 minute prior to the peak exercise During the recovery phase, there were no new changes. Blood pressure at the end of the recovery phase was not obtained,with a heart rate of 112 per minute. The EKG reverted almost back to baseline CONCLUSION: 1. Abnormal EKG response to [treadmill exercise . Because the baseline EKG changes, these changes are nonspecific. 2. No exercise-induced chest pain or cardiac arrhythmia 3. Slightly impaired r exercise tolerance, attained a maximum of 7.0 METs 4. Sestamibi/Sestamibi perfusion results pending; see separate report. Electronically Signed On 12-16-2023 22:05:50 CDT by Mary Casillas M.D. [email or web address]
[2023-12-12 09:00] VITALS: BMI 23.6
--- NOTE | 2023-12-12 09:04 | NMCV_ITS ---
NM mike perf SPECT r/s* [id number] Yobany Simmons Age: 73 Gender: M : 1950 Exam Date: 12/12/2023 09:44 Ordering Phys: Mary Casillas MD ([email or web address]) Technologist: MARICARMEN Ortiz Exam Location: [facility] Indications: CP STRESS TEST [facility] IMAGE PROTOCOL Rest/Stress 1 Exercise Day Radiopharmaceutical Dose (mCi) Administration Site Administered by Rest: Tc-99m 8.9 IV MARICARMEN Yanes Sestamibi Stress:Tc-99m 30.9 IV MARICARMEN Perez Sestamibi Rest: 12-Dec-2023 60 Discovery 630 Stress: 12-Dec-2023 15 Discovery 630 Radiopharmaceutical was injected at 100% maximum heart rate. Images obtained in supine and prone position. SPECT RESULTS Technical Quality: Good Raw Data Analysis: Normal Image Corrections: No attenuation or motion correction applied Summed Stress Score: 5 Summed Rest Score: 4 Summed Difference Score: 1 PERFUSION FINDINGS Moderate area of moderately decreased tracer uptake involving the mid inferoseptal, mid anteroseptal and apical septal regions. Some reversibility was noted in the apical septum FUNCTIONAL RESULTS (calculated via Gated SPECT) Stress Image LV EF (%): 63 Stress EDV (mL):90 TID: 0.77 Stress ESV (mL):33 FUNCTIONAL FINDINGS: Segmental wall motion analysis revealing no gross wall motion abnormalities IMPRESSIONS 1. Myocardial perfusion imaging revealing moderate area of moderately decreased tracer uptake involving the anteroseptum, inferoseptum and apical septum with subtle reversibility in the apical septum suggesting myocardial scarring in the distribution of the left and descending artery/right coronary artery with a small area of possible preinfarction ischemia. 2. Normal LV ejection fraction of 63%. 3. LV wall motion analysis revealing no gross wall motion abnormalities. 4. Normal LV volume No similar previous studies are available for comparison Dr Mary Casillas MD FACC (Electronically Signed) Final Date: 12 December 2023 21:12 S
[2023-12-12 10:55] VITALS: BP 155/84; PULSE 104
== END 2023-12-12 08:49 | disposition home or self-care (01) ==
LOC: CDL 08:49
PROVIDERS: PCP Internal Medicine; Visit Provider Internal Medicine Cardiovascular Disease
DX: Z98.61 Coronary angioplasty status (principal); R94.39 Abnormal result of other cardiovascular function study
CPT/HCPCS: 36415; 78452; 93017; A9500

== ENCOUNTER → 2024-01-02 15:34 | Outpatient (BNVA) | payer MEDICARE, SELFPAY | PROVIDERS: PCP Internal Medicine; Visit Provider Internal Medicine Cardiovascular Disease | DX: R94.39 Abnormal result of other cardiovascular function study (principal); R94.31 Abnormal electrocardiogram [ECG] [EKG]; I34.0 Nonrheumatic mitral (valve) insufficiency; I49.9 Cardiac arrhythmia, unspecified; E78.2 Mixed hyperlipidemia; I10 Essential (primary) hypertension; R05.3 Chronic cough; Z87.891 Personal history of nicotine dependence | CPT/HCPCS: 99214 ==

== ENCOUNTER 2024-08-13 17:07 | Outpatient (CLI) | payer BC, SELFPAY ==
--- NOTE | 2024-08-13 17:23 | CT_ITS ---
WS: [id number] CT chest w con* [id number] HISTORY: EMPHYSEMA, fall and right-sided pain. TECHNIQUE: Axial imaging performed through the thorax. Coronal and sagittal reformats are submitted. All CT scans at [facility] use at least one of these dose optimization techniques: automated exposure control; mA and/or kV adjustment per patient size (includes targeted exams where dose is matched to clinical indication); or iterative reconstruction. CONTRAST: Omnipaque 350; 100 mL IV. DLP: 370.50 mGy.cm COMPARISON: 01/29/2023 Lungs and central airway: Lungs are hyperexpanded. Mild biapical pleural thickening and scarring. Mild dependent changes LEFT lower lobe. No pulmonary contusion or pneumonia. No mass or nodule. Pleura: Normal. No pleural effusion. Heart and pericardium: Normal size heart with no pericardial effusion. Mediastinum and tiarra: No mediastinum or hilar adenopathy. Vessels: Minimal atherosclerosis aorta. Normal size pulmonary artery. Chest wall and lower neck: No soft tissue masses. Upper abdomen: Negative adrenal glands. Negative liver. Splenic granulomata. Osseous structures: Nondisplaced RIGHT seventh and ninth rib fractures. Eighth rib does not appear to be fractured. There is no separation. There are additional ribs on the RIGHT side with mild deformity from prior fractures. No spine fracture identified. CT/CT chest w con* [id number] IMPRESSION: 1. Chronic emphysema. 2. No pulmonary contusion or pneumothorax. 3. Nondisplaced acute RIGHT seventh and ninth rib fractures.
[2024-08-13] MEDS: iohexol 350 mg/mL 500 mL Btl (per mL) IV (18:04)
== END 2024-08-13 17:08 | disposition home or self-care (01) ==
LOC: RAD 17:15
PROVIDERS: PCP Internal Medicine; Visit Provider Family Medicine
DX: J43.9 Emphysema, unspecified (principal); S22.41XA Multiple fractures of ribs, right side, initial encounter for closed fracture; W19.XXXA Unspecified fall, initial encounter; R91.8 Other nonspecific abnormal finding of lung field; J92.9 Pleural plaque without asbestos; J98.4 Other disorders of lung; D73.89 Other diseases of spleen; R93.7 Abnormal findings on diagnostic imaging of other parts of musculoskeletal system
CPT/HCPCS: 71260

== ENCOUNTER → 2024-11-06 10:05 | Outpatient (BNVA) | payer MEDICARE, SELFPAY | PROVIDERS: PCP Internal Medicine; Visit Provider Internal Medicine Cardiovascular Disease | DX: R94.39 Abnormal result of other cardiovascular function study (principal); R94.31 Abnormal electrocardiogram [ECG] [EKG]; I34.0 Nonrheumatic mitral (valve) insufficiency; I49.9 Cardiac arrhythmia, unspecified; E78.5 Hyperlipidemia, unspecified; I10 Essential (primary) hypertension; Z98.61 Coronary angioplasty status | CPT/HCPCS: 99214 ==

== ENCOUNTER 2025-02-16 06:58 | Outpatient (CLI) | payer MEDICARE, SELFPAY | END 2025-02-16 06:59 | disposition home or self-care (01) | LOC: RT 06:59 | PROVIDERS: PCP Internal Medicine; Visit Provider Family Medicine | DX: J43.9 Emphysema, unspecified (principal) | CPT/HCPCS: 94060; 94726; 94729; J7613 ==